=== PATIENT | male | born 1995 | race Caucasian/White ===

== ENCOUNTER 2016-12-04 00:54 | Emergency (ER) | payer MEDICAID ==
[2016-12-04 01:03] VITALS: BP 114/78; PULSE 86; RESP 16; TEMP 97.7; O2SAT 93
[2016-12-04] MEDS ORDERED: IBUPROFEN 600 MG TAB PO ONE (01:09)
--- NOTE | 2016-12-04 01:13 | EDPHY ---
HPI/HX/ROS/PE/MDM Narrative: Chief complaint sore throat HPI: 21-year-old presenting with 3-4 days of worsening sore throat. Has had pain with swallowing. This morning had a little bit of difficulty breathing. No fevers or chills. No history of strep throat in the past. No recent illness. No nasal congestion or sinus pain. No ear pain. No rash. No chest pain or shortness of breath. No abdominal pain. ROS: 10 point Review of Systems is negative except as noted in the HPI. Physical exam: Gen: Awake, Alert, No Distress HEENT: Nose: no rhinorrhea Eyes: PERRLA, EOMI Mouth: Moist mucosa mild generalized erythema without exudate or edema Neck: Supple, no JVD Ext: no edema, non-tender Skin: no rash Neuro: CN II-XII intact, Sensation grossly intact, Strength 5/5 in bilateral upper and lower extremities General Time Seen by Provider: 12/04/16 01:04 Initial Vital Signs: Initial Vital Signs Temperature (C) 36.5 C 12/04/16 00:59 Heart Rate 86 12/04/16 00:59 Respiratory Rate 16 12/04/16 00:59 Blood Pressure 114/78 12/04/16 00:59 O2 Sat (%) 93 12/04/16 00:59 O2 Delivery Mode Room Air Allergies/Adverse Reactions: No Known Allergies Allergy (Unverified 12/04/16 00:59) Home Medications: Medication Instructions Recorded Estradiol 12/04/16 Progesterone 12/04/16 Spironolactone 12/04/16 Departure - Departure Disposition: Home, Routine, Self-Care Clinical Impression: Sore throat Condition: Good Instructions: Pharyngitis (ED) Additional Instructions: Take ibuprofen and acetaminophen as needed for pain. Follow up with your primary care physician in 2-3 days if symptoms are not improving. Referrals: NONE *PRIMARY CARE P,. [Primary Care Provider] - As per Instructions Kristin Herrera MD [Medical Doctor] - As per Instructions
== END 2016-12-04 01:50 | disposition home or self-care (01) ==
LOC: EEVIPCON 00:54
DX: J02.9 Acute pharyngitis, unspecified (principal)

== ENCOUNTER 2017-03-09 17:12 | Emergency (ER) | payer MEDICAID ==
[2017-03-09 17:29] VITALS: BP 122/69; PULSE 74; RESP 18; TEMP 97.5; O2SAT 97
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
== END 2017-03-09 18:00 | disposition home or self-care (01) ==
DX: S50.311A Abrasion of right elbow, initial encounter (principal); V28.4XXA Motorcycle driver injured in noncollision transport accident in traffic accident, initial encounter; Y92.410 Unspecified street and highway as the place of occurrence of the external cause; Y99.8 Other external cause status; Y93.55 Activity, bike riding